=== PATIENT | female | born 1960 | race Caucasian/White ===

== ENCOUNTER 2020-01-17 08:15 | Day surgery (SDC) | payer OTHER ==
[2020-01-15 16:24] LABS: BASOPHILS 0.4 % (0-2); EOSINOPHILS 1.3 % (0-7); MCH 26.7 pg (26.0-34.0); MCHC 31.4 g/dL (31.0-37.0); MEAN PLATELET VOLUME 8.6 fL (7.4-10.4); MONOCYTES 9.6 % (2-11); NEUTROPHILS 49.7 % (40-80); PLATELET COUNT 410 10x3/uL (130-400); RBC 4.12 10x6/uL (4.00-5.40); WBC 5.3 10x3/uL (4.8-10.8)
[2020-01-15 16:32] LABS: HCG SERUM NEGATIVE (NEGATIVE)
[~2020-01-17] VITALS: Ht 167.6 cm; Wt 88.0 kg
--- NOTE | ~2020-01-17 | OP ---
PATIENT NAME: BARNEY DAY MEDICAL RECORD: [id number] :64 LOCATION:[facility] ADMISSION DATE: SURGEON: NITIN FOUNTAIN MD DATE OF OPERATION: 01/17/2020 PREOPERATIVE DIAGNOSIS: Menorrhagia. POSTOPERATIVE DIAGNOSIS: Menorrhagia. PROCEDURE: Hysteroscopy, dilation and curettage. SURGEON: Nitin Fountain MD ANESTHESIA: General endotracheal. INTRAVENOUS FLUIDS: Per anesthesia record. HYSTEROSCOPIC FLUID LOSS: Less than 100 cc of 0.9 normal saline. FINDINGS: 1. Grossly normal appearing proliferative endometrium. 2. Normal appearing external genitalia and cervix. SPECIMENS: Include endometrial curettings. COMPLICATIONS: None apparent. PROCEDURE IN DETAIL: The patient was taken to the operating room where general anesthesia was achieved without difficulty. The patient was then prepped and draped in normal sterile fashion in the dorsal lithotomy position in the [facility]. Following prep and drape, the bladder was drained of approximately 200 cc of clear yellow urine. At this point, a Graves speculum was placed in the vagina and the cervix was grasped on its anterior lip with a single tooth tenaculum. The patient was dilated to approximately 5 mm, at which point, the hysteroscope was introduced into the cervix and survey of the endometrial cavity was performed. Following removal of the hysteroscope, the patient was further dilated to approximately 9 mm at which point a #1 curette was used to perform a curettage of all 4 quadrants of the uterus without any difficulty. Minimal bleeding was noted from the cervical os upon completion of curettage. Tenaculum and speculum were then removed. The patient tolerated the procedure well, transferred to postanesthesia recovery stable without incident. TRANSINT:[id number] Voice Confirmation ID: [id number] DOCUMENT ID: [id number] NITIN FOUNTAIN MD CC: [id number] DICTATION DATE: 01/27/20 0551 BLUE SPLIT TRIMMER: 01/27/20 1020 [facility] 01/17/20 [place] [id number] [place] [id number]
[2020-01-17 09:27] VITALS: BP 139/92; Ht 167.6 cm; Wt 88.0 kg
== END 2020-01-17 14:10 | disposition home or self-care (01) ==
LOC: D.OPS 08:15 → D.PAN 10:00 → D.OPS 14:10
PROVIDERS: Anesthesiology; ATTEND Obstetrics & Gynecology
DX: N92.1 Excessive and frequent menstruation with irregular cycle (principal)